=== PATIENT | female | born 1965 | race African-American/Black ===

== ENCOUNTER 2020-04-06 15:11 | Outpatient (CLI) | payer OTHER, SELFPAY ==
--- NOTE | ~2020-04-06 | MR_ITS ---
EXAMINATION: MR shoulder RT wo con DATE: 04/06/2020 16:07 INDICATION: Right shoulder impingement syndrome with pain and loss of motion at the right shoulder. TECHNIQUE: Magnetic resonance imaging (MRI) of the right shoulder was performed without intravenous c ontrast. Sequences included axial PD-weighted FS FSE, coronal oblique PD-weighted FS FSE, coronal obl ique T2-weighted FS FSE, sagittal PD-weighted FS FSE, and sagittal T1-weighted SE. COMPARISON: Right shoulder radiographs dated 03/26/2020 FINDINGS: Coracoacromial arch: The acromion undersurface is curved in morphology (type II). There is a large anterior subacromial sp ur at the acromial insertion of the otherwise coracoacromial ligament which is mildly thickened near its acromial insertion. Moderate acromioclavicular osteoarthritis with prominent cystic change along the anterior margin of the head of the clavicle. Rotator cuff: Moderate supraspinatus and infraspinatus tendinopathy. There is a small full-thickness tear along the superior facet footplate of the supraspinatus tendon which measures approximately 5 mm AP and 1 cm m edial collateral. The tear propagates an additional 1 cm more posteriorly is a partial-thickness javier cular sided tear extending to the conjoined portion of the supraspinatus and infraspinatus tendons. T he teres minor tendon is normal. Mild subscapularis tendinopathy without discrete tear. Normal rotato r cuff muscle bulk and signal. Biceps tendon, glenoid labrum and glenohumeral cartilage: Long head of the biceps tendon is normal with normal accessory head which fuses with the transverse h umeral ligament at the cephalad aspect of the lateral rim of the intertubercular groove. There is deg eneration of the posterior superior glenoid labrum which appears small with mild increased signal and poorly defined margins. Glenoid cartilage is normal. There is partial thickness cartilage loss witho ut degenerative subchondral changes along the cephalad aspect of the humeral head. Fluid: There is a small amount of fluid in the long head biceps tendon which is disproportionate to the phys iologic amount fluid in the glenohumeral joint space consistent with mild bicipital tenosynovitis. No loose osteochondral bodies. Small amount of fluid in the subacromial/subdeltoid bursa consistent wit h mild bursitis. Bones: Normal marrow signal with no edema, fracture or abnormal marrow replacing process. IMPRESSION: 1. Moderate supraspinatus and infraspinatus tendinopathy with small full-thickness supraspinatus tear extending posteriorly is a partial-thickness articular sided tear into the conjoined portion of the supraspinatus and never space tendons. 2. Mild glenohumeral osteoarthritis with mild degeneration of the posterior superior glenoid labrum. 3. Moderate acromioclavicular arthritis with mild underlying subacromial/subdeltoid bursitis. 4. Mild bicipital tenosynovitis. Reviewed, dictated and finalized at location H. SALES REPRESENTATIVE IMPRESSION: 1. Moderate supraspinatus and infraspinatus tendinopathy with small full-thickn ess supraspinatus tear extending posteriorly is a partial-thickness articular s ided tear into the conjoined portion of the supraspinatus and never space tendo ns. 2. Mild glenohumeral osteoarthritis with mild degeneration of the posterior sup erior glenoid labrum. 3. Moderate acromioclavicular arthritis with mild underlying subacromial/subdel toid bursitis. 4. Mild bicipital tenosynovitis.
== END 2020-04-06 15:12 | disposition home or self-care (01) ==
PROVIDERS: PCP Family Medicine; Visit Provider Orthopaedic Surgery
DX: M75.41 Impingement syndrome of right shoulder (principal); M75.81 Other shoulder lesions, right shoulder; S46.211A Strain of muscle, fascia and tendon of other parts of biceps, right arm, initial encounter; M19.011 Primary osteoarthritis, right shoulder; M75.51 Bursitis of right shoulder; M65.811 Other synovitis and tenosynovitis, right shoulder
CPT/HCPCS: 73221

== ENCOUNTER 2021-01-05 11:03 | Outpatient (CLI) | payer OTHER, SELFPAY ==
--- NOTE | 2021-01-05 11:15 | ECG_ITS ---
Measurements Intervals [place] Rate: 84 P: 66 KS: 190 QRS: 28 QRSD: 85 T: 38 QT: 357 QTc: 423 Interpretive Statements SINUS RHYTHM ATRIAL PREMATURE COMPLEX DELAYED PRECORDIAL R/S TRANSITION BORDERLINE ECG Electronically Signed On 01-05-2021 11:47:05 CDT by Leobardo Gann D.O.
[2021-01-05 11:32] LABS: Hematocrit 39.9 % (37.0-47.0); Hemoglobin 13.1 g/dL (12.0-15.0)
[2021-01-05 11:42] LABS: Anion Gap 7 mmol/L (8-16); Blood Urea Nitrogen 13 mg/dL (7-17); Calcium 9.9 mg/dL (8.4-10.2); Carbon Dioxide 28 mmol/L (22-30); Chloride 104 mmol/L (98-107); Estimated Glomerular Filt Rate > 60; Glucose 126 mg/dL (65-110); Potassium 4.1 mmol/L (3.4-5.0); Sodium 139 mmol/L (137-145)
== END 2021-01-05 11:04 | disposition home or self-care (01) ==
PROVIDERS: PCP Family Medicine; Visit Provider Orthopaedic Surgery
DX: Z01.818 Encounter for other preprocedural examination (principal); D64.9 Anemia, unspecified; I10 Essential (primary) hypertension; E11.9 Type 2 diabetes mellitus without complications
CPT/HCPCS: 36415; 80048; 85014; 85018; 93005

== ENCOUNTER 2021-01-07 04:28 | Day surgery (SDC) | payer OTHER, SELFPAY ==
[2021-01-04 12:49] VITALS: BMI 44.9
--- NOTE | 2021-01-06 13:46 | WPDANESEPPF ---
Anes - Initial Pre Proc Eval Procedure: Operation Date: 01/07/21 10:30 Proposed Procedures p Arthroscopic Rotator Cuff Repair, Proceed as Indicated(Right) - Gerald Llanos MD Date/Time: 01/06/21 13:46 Surgeon: Gerald Llanos MD Pre Op Diagnosis: complete rotator cuff tear, right Patient Data Age: 55 Gender: F Height: 1.6 m Weight: 115 kg Allergies Allergy/AdvReac Type Severity Reaction Status Date / Time No Known Allergies Allergy Verified 01/07/21 09:11 Home Medications Medication Instructions Recorded Confirmed Type acyclovir 400 mg tablet 400 mg PO BID 03/24/19 01/07/21 History amlodipine 10 mg tablet 10 mg PO DAILY #90 tablet 03/24/20 01/07/21 Rx aspirin 81 mg tablet,delayed 81 mg PO DAILY 03/24/20 01/07/21 History release labetalol 100 mg tablet 100 mg PO Q12H #180 tablet 03/24/20 01/07/21 Rx metformin 1,000 mg tablet 1,000 mg PO BID #180 tablet 03/24/20 01/07/21 Rx simvastatin 10 mg tablet 10 mg PO DAILY #90 tablet 09/23/20 01/07/21 Rx losartan 50 mg tablet 50 mg PO DAILY #90 tablet 12/31/20 01/07/21 Rx ferrous sulfate 325 mg PO DAILY 01/07/21 01/07/21 History Patient hx anesthesia problems: none Family hx anesthesia problems: none PMFSH Past Medical History Medical History (Updated 01/06/21 @ 13:46 by Saul Uribe MD) Anemia Complete tear of right rotator cuff Depression Diabetes Dry eye syndrome History of abdominal abscess (Unknown) Hypertension Morbid obesity with BMI of 40.0-44.9, adult Normal colonoscopy Preglaucoma Surgical History Surgical History History of hysterectomy (~2012) Family History Family History Other Hypertension Other Diabetes mellitus Family history of lung cancer Lung cancer Social History Social History Years smoked: 20 Smoking status: Former smoker Tobacco type: cigarettes Second hand tobacco smoke exposure: No Smoking end date: 05/21/15 Alcohol intake: current Alcohol use details: 2 PER MONTH Substance use: never Living arrangements: alone Anes - Eval Final PreProcedure Day of Procedure 01/06/21 13:46 Patient weight: morbidly obese Heart: regular rate and rhythm Lungs: clear to auscultation and normal air movement Airway: Mallampati scale class II Neurological: alert and oriented Last oral intake: >/= 8 hours ASA classification: III Emergent: no Anesthetic plan: proceed Anesthesia type and monitoring: general ETT Informed Consent: The patient's anesthetic plan and its attendant risks and benefits were discussed with the patient/family/POA. Questions were solicited and answers provided to the satisfaction of the patient/family/POA.
[2021-01-07] VITALS (10 sets, daily range): BP systolic 112–163; BP diastolic 64–86; PULSE 73–92; RESP 15–20; TEMP 36.3–36.8; O2SAT 93–100
[2021-01-07] MEDS: ACETAMINOPHEN 500 MG TABLET 1000 MG PO (09:21)
[2021-01-07] MEDS: LACTATED RINGERS 1,000 ML 30 ML IV CONT ×2 (09:29→13:13)
[2021-01-07 09:36] LABS: Glucose Point of Care 125 mg/dl (65-105)
[2021-01-07] MEDS: KETOROLAC 15 MG/ML VIAL (*BKC) IV PUSH (09:38)
--- NOTE | 2021-01-07 10:07 | WPDHPUPDATE1 ---
History and Physical Update Update Date/Time: 01/07/21 10:07 History and Physical has been reviewed, including an updated exam of the patient. There are NO changes in the patient's condition. Risks, benefits, and alternatives have been discussed and questions answered. Patient agrees to proceed with procedure.
[2021-01-07] MEDS: ceFAZolin 2 GM/D5W 50 ML 2 GM/50 ML BAG IVPB (10:43)
--- NOTE | 2021-01-07 10:44 | WPDANESPNB ---
Anes - Peripheral Nerve Block Date/Time: 01/07/21 10:44 I have discussed with the patient/family/POA the placement of a peripheral nerve block for post-operative pain management, including associated risks, benefits, complications, and side effects. Alternative methods of post-operative analgesia were detailed. Questions were solicited and answers provided to the satisfaction of the patient/family/POA. Time-Out: A pre-procedural Time-Out was completed immediately before starting the procedure and confirmed: Patient Identification, Site, Procedure, Patient Position and the Availability of Requisite Equipment. Clinical Indications: Acute post-operative pain management requested by the operative surgeon. Nerve Block Insertion Note Anes-nerve block: supraclavicular right Patient position: supine Skin prep: chlorhexidine Needle: 22 gauge, stimulating, insulated echogenic needle. Needle length: 80 mm Technique: ultrasound (in plane) Injectate: bupivacaine 0.5% with epi 5 mcg/ml (20cc) Observations: tolerated well Complications: none Procedure start time:: 1035 Procedure end time:: 1040
[2021-01-07 13:35] LABS: Glucose Point of Care 140 mg/dl (65-105)
--- NOTE | 2021-01-07 16:37 | W.PM.PROC2 ---
Procedure Note - Detailed Date of Procedure 01/07/21 Pre-op Diagnosis complete rotator cuff tear, right Post-op Diagnosis other (1. Right rotator cuff tear 2. Biceps tendinosis 3. Subacromial impingement ) Procedure Performed 1. Arthroscopic rotator cuff repair 2. Arthroscopic subacromial decompression 3. Arthroscopic biceps tenotomy. Surgeon Gerald Llanos MD Personal Care Attendant Shira Webster PA-C Anesthesia general and regional ( interscalene block) Findings Medium-large crescent tear with mild retraction of the supraspinatus. Tendon quality was generally good, however there was some mild delamination and thinning. Partial-thickness tearing of the upper subscapularis. Extensive tendinosis and partial rupture of the biceps tendon and anchor. No significant arthritis. Knotless anchor repair of the subscapularis performed. Two tunnel 6 suture rip stop repair of the supraspinatus. Biceps tenotomy and subacromial decompression. Description of Procedure Preoperative antibiotics were given. An interscalene block was administered in the preoperative area. The patient was bought brought to the operating room. A general anesthetic was administered. The patient was carefully positioned in the beach chair position. The head and neck were carefully positioned. The non operative extremity was also carefully positioned. The shoulder was prepped and draped in the usual sterile fashion. Examination was performed. Standard posterior and anterior arthroscopic portals were established. Inflow achieved with the arthroscopic pump using saline and epinephrine. The glenohumeral joint was carefully inspected. Biceps rupture and severe tendinosis was evident. Tenotomy was performed. The superior labrum was lightly debrided. The subscapularis had some splitting and partial-thickness tear. The area appeared pathologic enough to warrant suture anchor repair. A horizontal mattress suture tape was used with a knotless anchor. The tendon repaired quite nicely and appeared anatomic.. Attention was turned to the subacromial space. A complete bursectomy was performed. The rotator cuff and footprint were lightly debrided. A modest acromioplasty was performed. The tear configuration was carefully assessed. At this point, 2 tunnels were created at the rotator cuff. The ArthroTunneler technique was utilized. Three sutures were passed through each tunnel. All sutures were then passed through the cuff tissue. The sutures were tied arthroscopically. The arthroscopic instruments were removed. The wounds were closed with 3-0 Monocryl subcuticular suture and steri strips. There were no complications. A sling was applied and the patient brought to the recovery room. Physician diploma dental assistant, Shira Webster PA-C, required for surgery; including patient positioning, draping, arthroscopic camera operation, maintaining instrument position, suture retrieval, wound closure, and dressing and sling placement. Implants [place] knotless suture anchor. Five suture tape and 2, #2 Orthocord. Estimated Blood Loss -20.0 Pathology none sent Complications No immediate complications Condition stable Disposition PACU
== END 2021-01-07 16:30 | disposition home or self-care (01) ==
PROVIDERS: PCP Family Medicine; Visit Provider Orthopaedic Surgery
PROC: (CPT 23420; principal; 2021-01-07 10:30)
DX: M75.121 Complete rotator cuff tear or rupture of right shoulder, not specified as traumatic (principal); M75.81 Other shoulder lesions, right shoulder; M75.41 Impingement syndrome of right shoulder; M19.011 Primary osteoarthritis, right shoulder; G89.18 Other acute postprocedural pain; I10 Essential (primary) hypertension; E11.9 Type 2 diabetes mellitus without complications; Z79.84 Long term (current) use of oral hypoglycemic drugs; E66.01 Morbid (severe) obesity due to excess calories; Z68.41 Body mass index [BMI] 40.0-44.9, adult; F32.9 Major depressive disorder, single episode, unspecified; Z87.891 Personal history of nicotine dependence
CPT/HCPCS: 64415; 29827; 29826; 82948; A4565; A9270; J0690; J1885; J2250; J3010; J7120